=== PATIENT | male | born 1985 | race Caucasian/White ===

== ENCOUNTER 2019-11-03 14:50 | Emergency (ER) | payer BC, SELFPAY ==
--- NOTE | ~2019-11-03 | XR_ITS ---
XR chest 2V DATE: 11/03/2019 15:17 INDICATION: Cough for 3.5 weeks. Nonsmoker. TECHNIQUE: PA and lateral views COMPARISON: None FINDINGS: Normal heart size. No hilar or mediastinal enlargement. No pulmonary infiltrate or consolid ation, pleural effusion or pulmonary vascular congestion or pneumothorax. IMPRESSION: Negative Reviewed, dictated and finalized at location B. IMPRESSION: Negative
[2019-11-03 15:00] VITALS: BP 141/76; PULSE 87; RESP 16; TEMP 36.6; O2SAT 98
--- NOTE | 2019-11-03 15:08 | ED.URI ---
HPI - URI/Sore Throat General Chief Complaint: Upper Respiratory Infection Stated Complaint: cough and sinus Time Seen by Provider: 11/03/19 15:09 Source: patient History of Present Illness HPI Narrative: Patient presents with dry hacking nonproductive cough for the past 3 weeks. No shortness of breath no chest pain no fever. Patient reports nasal congestion and nasal drainage but does not take anything [id number] for her symptoms. Patient has not had any recent international travel and denies any sick exposures denies any exposure to coronavirus. MD elicited complaint: cough and nasal congestion Related Data Home Medications Medication Instructions Recorded Confirmed No Home Medications 11/03/19 11/03/19 Allergies Allergy/AdvReac Type Severity Reaction Status Date / Time No Known Allergies Allergy Verified 11/03/19 15:07 Review of Systems Review of Systems: Narrative: CONSTITUTIONAL: Denies chills, or sweats. Reports fever and generalized body aches EYES: Denies visual changes, redness, or discharge. ENT: Denies otalgia. Reports nasal congestion runny nose and sore throat CARDIOVASCULAR: Denies chest pain, palpitations, or edema. RESPIRATORY: Denies dyspnea. Reports occasional cough GASTROINTESTINAL: Denies abdominal pain, nausea, vomiting, or diarrhea. GENITOURINARY: Denies dysuria or hematuria. SKIN: Denies rash or itching. MUSCULOSKELETAL: Denies back pain, joint pain, or myalgia. Reports generalized body aches NEUROLOGIC: Denies headache, numbness, or weakness. PSYCHIATRIC: Denies anxiety or depression. PMFSH Comments At time of signature, agree with nursing past medical, surgical, social and family history. There is no relevant family history pertinent to the presenting complaint Exam Narrative: Exam Narrative: The patient is a well-developed, well-nourished in no acute distress. SKIN: Skin is warm and dry without erythema, swelling or exudate. There is good turgor. No tenting. HEAD: Atraumatic. Normocephalic. No temporal or scalp tenderness. EYES: Moist and bright. Sclera and conjunctivae normal. No discharge. PERRLA. Extraocular motions intact. Gross visual acuity intact. EARS: Pinna is normal shape and contour. Clear external auditory canals. TM pearly ward with good cone of light, no erythema or suppuration. Bilateral cerumen noted no gross hearing deficit. NOSE: pink, moist mucosa with good air movement. Clear rhinorrhea without nasal flaring. Septum midline. Mouth: moist mucous membranes. THROAT; mild erythema noted to posterior oropharynx with moderate postnasal drainage. Without exudate or ulceration.. Uvula midline. Normal movement of soft palate. NECK: Supple and nontender with full range of motion without discomfort. No meningeal signs. LUNGS: Equal and bilateral breath sounds without wheezes, rales or rhonchi. CHEST: The chest wall is without retractions or use of accessory muscles. HEART: Has a regular rate and rhythm without murmur, gallops, click or rub. ABDOMEN: Soft, nontender with positive active bowel sounds. No rebound tenderness. EXTREMITIES: Without cyanosis, clubbing or edema. Equal 2+ distal pulses and 2 second capillary refill noted. NEUROLOGIC: alert, active, . The patient moves all extremities with normal muscle strength. Normal muscle tone is noted. Normal coordination is noted. NO focal neurological findings noted. Course Vital Signs Vital signs: Vital Signs Temperature 36.6 C 11/03/19 15:00 Pulse Rate 87 11/03/19 15:00 Respiratory Rate 16 11/03/19 15:00 Blood Pressure 141/76 H 11/03/19 15:00 Pulse Oximetry 98 11/03/19 15:00 Temperature 36.6 C 11/03/19 15:00 Pulse Rate 87 11/03/19 15:00 Respiratory Rate 16 11/03/19 15:00 Blood Pressure 141/76 H 11/03/19 15:00 Pulse Oximetry 98 11/03/19 15:00 Addressed elevated BP today. Today's blood pressure higher than recommended range. Discussed importance of follow -up with PCP and possible long
== END 2019-11-03 15:40 | disposition home or self-care (01) ==
PROVIDERS: Emergency Provider Nurse Practitioner Family
DX: R05 Cough (principal); R09.82 Postnasal drip
CPT/HCPCS: 71046; 87081; 87880; 99213; G0463

== ENCOUNTER 2020-12-30 16:15 | Emergency (ER) | payer OTHER, SELFPAY ==
--- NOTE | 2020-12-30 16:21 | ED.URI ---
HPI - URI/Sore Throat General Chief Complaint: Upper Respiratory Infection Stated Complaint: body aches,weakness,fever Time Seen by Provider: 12/30/20 16:21 Source: patient and RN notes reviewed History of Present Illness HPI Narrative: Patient is a 35-year-old male who presents the urgent care with complaints of body aches, weakness, fever. Patient states that started on Friday and the last 2 days have been worse. Patient states that he did have Covid on October 29 and went to [facility] prior to our facility who stated they did not have anything to test him for because they would not repeat a rapid Covid . Patient states he has had a slight cough without any shortness of breath or chest pain. Patient has been taking Tylenol for his symptoms. No other acute complaints. No acute distress noted. Patient aware of the plan of care. Some parts of this dictation were generated by voice recognition software and may contain typographical and/or grammatical inaccuracies. Related Data Home Medications Medication Instructions Recorded Confirmed No Home Medications 12/30/20 12/30/20 Allergies Allergy/AdvReac Type Severity Reaction Status Date / Time No Known Allergies Allergy Verified 12/30/20 16:28 Review of Systems Review of Systems: Narrative: CONSTITUTIONAL: Reports of fever, chills, sweats. Reports of fatigue EYES: Denies visual changes, redness, or discharge. ENT: Denies rhinorrhea, congestion, sore throat, or otalgia. CARDIOVASCULAR: Denies chest pain, palpitations, or edema. RESPIRATORY: Denies cough or dyspnea. GASTROINTESTINAL: Denies abdominal pain, nausea, vomiting, or diarrhea. GENITOURINARY: Denies dysuria or hematuria. SKIN: Denies rash or itching. MUSCULOSKELETAL: Denies back pain, joint pain. Reports of body aches NEUROLOGIC: Denies headache, numbness. All other systems reviewed are negative, except as documented in HPI. PMFSH Comments At the time of my signature, I reviewed and agree with the nursing past medical, surgical, social, and family history. There is no relevant family history pertinent to the patient complaint. Exam Narrative: Exam Narrative: GENERAL: This is a well-nourished, well-developed patient, in no apparent distress. HEAD: normocephalic, atraumatic. EYES: PERRL. Sclera clear/white. Vision is grossly intact. EARS: External ears normal, auditory canals clear and without drainage, TMs normal without perforation. Hearing grossly intact. NOSE: External nose normal with no obvious nasal discharge, nares without redness, no rhinorrhea. THROAT: Mucous membranes moist, posterior pharynx clear. Mild postnasal drainage NECK: Neck supple CARDIOVASCULAR: Regular rate and rhythm without murmurs, gallops, or rubs. RESPIRATORY: Clear to auscultation. Breath sounds equal bilaterally. No wheezes, rales, or rhonchi. SKIN: warm, intact with no suspicious lesions or rash, good texture and turgor. NEURO: awake, alert, and oriented to person, place and time. There were no obvious focal neurologic abnormalities. EXTREMITIES: No clubbing, cyanosis, or edema. Course Vital Signs Vital signs: Vital Signs Temperature 100.8 F H 12/30/20 16:25 Pulse Rate 139 H 12/30/20 16:25 Respiratory Rate 20 12/30/20 16:25 Blood Pressure 133/63 12/30/20 16:25 Pulse Oximetry 98 12/30/20 16:25 Temperature 100.8 F H 12/30/20 16:25 Pulse Rate 139 H 12/30/20 16:25 Respiratory Rate 20 12/30/20 16:25 Blood Pressure 133/63 12/30/20 16:25 Pulse Oximetry 98 12/30/20 16:25 Reviewed MDM - URI/Sore Throat MDM Narrative Medical decision making narrative: Reviewed lab results with the patient. He is aware that flu and strep swabs were both negative. Educated him on strep swab and we will call within 72 hours if strep is positive and antibiotics are necessary. It is highly possible that symptoms are just your typical viral infection however, our facility is unable to evaluate any further without th
[2020-12-30 16:25] VITALS: BP 133/63; PULSE 139; RESP 20; TEMP 38.2; O2SAT 98
[2020-12-30 16:51] VITALS: BP 133/63; PULSE 139; RESP 20; TEMP 38.2; O2SAT 98
[2020-12-30 17:00] VITALS: PULSE 100
== END 2020-12-30 17:10 | disposition home or self-care (01) ==
PROVIDERS: Emergency Provider Nurse Practitioner Family
DX: B34.9 Viral infection, unspecified (principal); Z86.16 Personal history of COVID-19
CPT/HCPCS: 87081; 87804; 87880; 99213; G0463